=== PATIENT | male | born 1955 | race Caucasian/White ===

== ENCOUNTER → 2020-08-02 12:03 | Outpatient (BNVA) | payer OTHER, SELFPAY | PROVIDERS: PCP Family Medicine; Visit Provider Urology ==

== ENCOUNTER → 2020-09-06 15:28 | Outpatient (BNVA) | payer OTHER, SELFPAY | PROVIDERS: PCP Family Medicine; Visit Provider Urology ==

== ENCOUNTER 2020-09-11 12:41 | Day surgery (SDC) | payer MEDICARE, SELFPAY ==
--- NOTE | 2020-09-08 11:36 | P.CONAN_ITS ---
Documented by User: Geneva Shawna 09/08/20 11:37 HPI - Anesthesia Eval Consult details Narrative: 64yo M for Right Cystoscopy, Ureteroroscopy, Retro, Laser FOR[facility] Active Problems Active Problems: All Active Problems (Updated 09/06/20 @ 15:41 by HERLINDA Guillermo) Ureteral stone with hydronephrosis (Acute) Nephrolithiasis (Acute) Past Medical History Medical History (Updated 09/06/20 @ 15:41 by HERLINDA Guillermo) Elevated PSA Surgical History Surgical History (Updated 09/06/20 @ 15:41 by HERLINDA Guillermo) History of appendectomy Social History Social History (Updated 09/06/20 @ 15:42 by HERLINDA Guillermo) Smoking Status: Never smoker Use of substances other than those prescribed or required for medical reasons: No Have you been hit, kicked, punched, or otherwise hurt by someone within the past year? If so, by whom?: No Advance Directives: No Advance Directives Information Provided: Yes Meds Allergies Allergy/AdvReac Type Severity Reaction Status Date / Time No Known Allergies Allergy Verified 09/06/20 15:41 Exam Exam Date and Time: September 08, 2020 1136 Assessment and Plan Assessment Anesthesia Assessment: Chart Reviewed Documented by User: Kristofer Kelly MD 09/11/20 13:56 PMF Past Medical History Medical History (Updated 09/06/20 @ 15:41 by HERLINDA Guillermo) Elevated PSA Surgical History Surgical History (Updated 09/06/20 @ 15:41 by HERLINDA Guillermo) History of appendectomy Social History Social History (Updated 09/06/20 @ 15:42 by HERLINDA Guillermo) Smoking Status: Never smoker Use of substances other than those prescribed or required for medical reasons: No Have you been hit, kicked, punched, or otherwise hurt by someone within the past year? If so, by whom?: No Advance Directives: No Advance Directives Information Provided: Yes Meds Allergies Allergy/AdvReac Type Severity Reaction Status Date / Time No Known Allergies Allergy Verified 09/06/20 15:41 Exam Airway Mallampati Class: II TM Dist: >3cm Neck ROM: Full Loose/Missing/Broken Teeth: No Heart: RRR Lungs: NL Assessment and Plan Assessment Anesthesia Assessment: Anesthesia Plan Discussed and Chart Reviewed Final Anesthetic Review NPO: Yes ASA Class: III Final Preanesthetic Review: No Changes in Pt Med Stat, Meds/Allgs Chart Reviewed, Consent Obtained/Reviewed and Anes Risks/Benef Reviewed Patient Risk: Intermediate Procedure Risk: Low Anesthetic Plan Anesthetic Plan: GA Disposition: Standard PACU
--- NOTE | ~2020-09-11 | FL_ITS ---
EXAMINATION: XR FLUOROSCOPY WITH IMAGES CLINICAL INFORMATION: Stone urinary tract COMPARISON: None. TECHNIQUE: Fluoroscopy performed by Dr. Ariel Smith. Fluoroscopy time: 1.1 minutes Cumulative dose: 27.89 mGy Images: 2 FINDINGS: The fluoroscopic spot views demonstrate a right ureteral stent in position. FL/FL guidance in OR IMPRESSION: Fluoroscopy for urologic procedure.
[2020-09-11 13:38] VITALS: BP 176/86; PULSE 64; RESP 18; TEMP 36.6; O2SAT 97; BMI 29.2
[2020-09-11] MEDS: Lactated Ringers 1,000 ML 100 ML IVCONT (14:05)
[2020-09-11] MEDS: levoFLOXacin 500 MG TABLET PO (14:12)
[2020-09-11] MEDS: Acetaminophen 325 MG TABLET 650 MG PO (14:12)
--- NOTE | 2020-09-11 15:07 | P.OP_ITS ---
Operative Note Operative Note Date of Service: 09/11/20 Narrative: PreOperative Diagnosis: Right ureteric stone Post Operative Diagnosis: Right ureteric stone Procedure: - right cystoscopy, retrograde - dilatation of ureteric orifice under fluoroscopy - right ureteroscopy, laser lithotripsy, - right stent placement Surgeon: Dr Ariel Smith Anesthesia: General Indications for procedure: This is a 64-year-old male. Had pain on the right side and presented to emergency room for 4 weeks ago. He thought that stone had settled down however he would notice pain starting to reoccur. Ultrasound could not see stone. Based on his findings of persistent pain going to the right groin suggestion for retrograde with ureteroscopy and laser lithotripsy. He is aware of the risks and benefits. Procedure: After informed consent was verified patient was brought to the operating placed in supine position. Anesthesia was administered per protocol. Patient was placed in modified dorsal lithotomy position and prepped and draped in a sterile fashion. Safety pause time-out and side of surgery confirmed. Antibiotics con firmed. A 22 Albanian cystoscope was placed per urethra. No abnormality noted in the anterior posterior urethra. Both ureteric orifices normal position. The right ureteric orifice was seen cannulated retrograde examination performed. There was a filling defect just below the pelvic brim. A Sensor guidewire was placed in navigated around the filling defect. A [place] dilator was used to dilate the ureteric orifice under fluoroscopic guidance. A rigid ureteral scope was placed and stone was encountered at the area of narrowing of from the retrograde. Using a 360 mm fiber the holmium laser was used to break the stone into small pieces. There were too small to basket decision was made to place stent. At 6 Albanian by 26 cm stent was placed without difficulty and good coil seen within renal pelvis in the bladder. His bladder was emptied. He tolerated procedure well and was transferred in a stable condition to recovery area. Pathology: None Drains: 6 Albanian by 24 cm stent
--- NOTE | 2020-09-11 15:08 | MHC.SHP ---
Pre-Procedural Eval Section A The patient is an INPATIENT: No Changes since office visit: No Cold of Flu in the past 2 weeks, No New Medical Problems, No Changes in Medication and No Patient answered all questions The History & Physical has been completed within 30 days and I have reviewed it.: Yes Section B Chief Complaint: Calculus of kidney Allergies: Allergies Allergy/AdvReac Type Severity Reaction Status Date / Time No Known Allergies Allergy Verified 09/06/20 15:41 Plan Diagnosis/Plan: Unchanged (Right retrograde, ureteroscopy, laser lithotripsy, stent placement) I have reviewed the history and physical and performed a pertinent physical examination on my patient. No changes have occurred unless specified.
[2020-09-11 16:00] VITALS: BP 129/77; PULSE 72; RESP 14; TEMP 37; O2SAT 95
[2020-09-11 16:05] VITALS: BP 140/76; PULSE 70; RESP 16; O2SAT 94
[2020-09-11 16:10] VITALS: BP 126/79; PULSE 64; RESP 18; O2SAT 95
[2020-09-11 16:15] VITALS: BP 140/82; PULSE 70; RESP 16; O2SAT 96
[2020-09-11] MEDS: Phenazopyridine HCL 100 MG TABLET PO (16:21)
[2020-09-11 16:30] VITALS: BP 132/86; PULSE 66; RESP 18; TEMP 37; O2SAT 96
== END 2020-09-11 16:50 | disposition home or self-care (01) ==
PROVIDERS: PCP Family Medicine; Visit Provider Urology
PROC: (CPT 52356; principal; 2020-09-11 14:40)
DX: N13.2 Hydronephrosis with renal and ureteral calculous obstruction (principal); R97.20 Elevated prostate specific antigen [PSA]
CPT/HCPCS: 52356; C1769; C2617; J1100; J1885; J2250; J3010; Q9967

== ENCOUNTER → 2020-09-20 08:54 | Outpatient (BNVA) | payer MEDICARE, SELFPAY | PROVIDERS: Visit Provider Urology | DX: N13.2 Hydronephrosis with renal and ureteral calculous obstruction (principal) | CPT/HCPCS: 52310; 81002; 99212 ==

== ENCOUNTER → 2020-11-15 08:50 | Outpatient (BNVA) | payer MEDICARE, SELFPAY | PROVIDERS: PCP Family Medicine; Visit Provider Urology ==

== ENCOUNTER → 2020-11-21 11:09 | Outpatient (BNVA) | payer MEDICARE, SELFPAY | PROVIDERS: PCP Family Medicine; Visit Provider Urology | DX: Z13.89 Encounter for screening for other disorder (principal) | CPT/HCPCS: Q3014 ==

== ENCOUNTER 2021-05-28 12:59 | Outpatient (REF) | payer MEDICARE, SELFPAY ==
--- NOTE | ~2021-05-28 | US_ITS ---
EXAMINATION: US RETROPERITONEAL LIMITED (RENAL ONLY) CLINICAL INFORMATION: Calculus of kidney. COMPARISON: X-ray abdomen KUB same date. TECHNIQUE: Real-time imaging of the kidneys. FINDINGS: RIGHT KIDNEY: 12.9 x 7.2 x 6.3 cm (SAG x AP x TRV). The kidney is normal in size, contour, and echogenicity. Renal cortical thickness is normal. No focal parenchymal lesions or hydronephrosis. There is an echogenic stone measuring 0.53 x 0.6 cm. No caliectasis seen. LEFT KIDNEY: 14.6 x 7.3 x 5.5 cm (SAG x AP x TRV). The kidney is normal in size, contour, and echogenicity. Renal cortical thickness is normal. No calculi or focal parenchymal lesions. No hydronephrosis. US/US renal BI IMPRESSION: Small nonobstructive 6 mm calculus lower pole right kidney.
--- NOTE | ~2021-05-28 | XR_ITS ---
EXAMINATION: XR ABDOMEN KUB CLINICAL INDICATION: Calculus of ureter COMPARISON: Ultrasound from 05/28/2021 TECHNIQUE: AP view of the abdomen. FINDINGS: There right lower pole calculus seen on ultrasound is not clearly visualized. No suspicious calcifications overlie the expected position of either kidney or ureter. Normal bowel gas pattern. No dilated loops of bowel. Gas and stool throughout the colon. Mild colonic stool burden. The lung bases appear clear. Degenerative changes of the spine. XR/XR KUB IMPRESSION: No suspicious calcifications in the expected position of either kidney or ureter.
== END 2021-05-28 13:00 | disposition home or self-care (01) ==
LOC: HO.US 12:59
PROVIDERS: PCP Family Medicine; Visit Provider Urology
DX: N20.0 Calculus of kidney (principal); N20.1 Calculus of ureter
CPT/HCPCS: 74018; 76775

== ENCOUNTER → 2021-06-06 14:34 | Outpatient (BNVA) | payer MEDICARE, SELFPAY | PROVIDERS: PCP Family Medicine; Visit Provider Urology | DX: N40.1 Benign prostatic hyperplasia with lower urinary tract symptoms (principal); N13.8 Other obstructive and reflux uropathy; N13.2 Hydronephrosis with renal and ureteral calculous obstruction | CPT/HCPCS: Q3014 ==

== ENCOUNTER 2021-10-24 09:48 | Outpatient (REF) | payer MEDICARE, SELFPAY ==
--- NOTE | ~2021-10-24 | US_ITS ---
EXAMINATION: US RETROPERITONEAL LIMITED (RENAL ONLY) CLINICAL INFORMATION: Calculus of kidney. COMPARISON: X-ray KUB 05/28/2021, renal ultrasound 05/28/2021 TECHNIQUE: Real-time imaging of the kidneys. FINDINGS: RIGHT KIDNEY: 13.0 x 6.5 x 6.4 cm (SAG x AP x TRV). The kidney is normal in size, contour, and echogenicity. Renal cortical thickness is normal. There is an echogenic density questionable for a stone or cluster of stones in the midpole measuring 5 x 11 mm. No focal parenchymal lesions or hydronephrosis. LEFT KIDNEY: 13.8 x 6.3 x 6.3 cm (SAG x AP x TRV). The kidney is normal in size, contour, and echogenicity. Renal cortical thickness is normal. No calculi or focal parenchymal lesions. No hydronephrosis. US/US renal BI IMPRESSION: Question right renal stone(s).
== END 2021-10-24 09:49 | disposition home or self-care (01) ==
LOC: HO.US 09:48
PROVIDERS: Visit Provider Urology
DX: N20.0 Calculus of kidney (principal)
CPT/HCPCS: 76775

== ENCOUNTER → 2021-12-04 14:52 | Outpatient (BNVA) | payer MEDICARE, SELFPAY | PROVIDERS: PCP Family Medicine; Visit Provider Urology | DX: N20.0 Calculus of kidney (principal); N40.1 Benign prostatic hyperplasia with lower urinary tract symptoms; N13.8 Other obstructive and reflux uropathy | CPT/HCPCS: 99212 ==

== ENCOUNTER 2022-05-31 08:41 | Outpatient (REF) | payer MEDICARE, SELFPAY ==
--- NOTE | ~2022-05-31 | US_ITS ---
EXAMINATION: US RETROPERITONEAL LIMITED (RENAL ONLY) CLINICAL INFORMATION: Calculus of kidney. COMPARISON: Bilateral renal ultrasound dated 10/24/2021 TECHNIQUE: Real-time imaging of the kidneys. FINDINGS: RIGHT KIDNEY: 13.0 x 6.2 x 6.4 cm (SAG x AP x TRV). The kidney is normal in size, contour, and echogenicity. Renal cortical thickness is normal. No renal calculi or hydronephrosis. Tiny 6 mm anechoic cyst of the cortex of the right mid kidney. LEFT KIDNEY: 12.6 x 6.5 x 6.1 cm (SAG x AP x TRV). The kidney is normal in size, contour, and echogenicity. Renal cortical thickness is normal. No calculi or focal parenchymal lesions. No hydronephrosis. US/US renal BI IMPRESSION: No renal calculi or hydronephrosis by ultrasound..
== END 2022-05-31 08:42 | disposition home or self-care (01) ==
LOC: HO.US 08:41
PROVIDERS: Visit Provider Urology
DX: N20.0 Calculus of kidney (principal)
CPT/HCPCS: 76775

== ENCOUNTER → 2022-06-11 09:40 | Outpatient (BNVA) | payer MEDICARE, SELFPAY | PROVIDERS: PCP Family Medicine; Visit Provider Urology | DX: N40.1 Benign prostatic hyperplasia with lower urinary tract symptoms (principal); N13.8 Other obstructive and reflux uropathy; N20.0 Calculus of kidney | CPT/HCPCS: Q3014 ==

== ENCOUNTER 2023-05-23 08:12 | Outpatient (REF) | payer MEDICARE, SELFPAY ==
--- NOTE | ~2023-05-23 | US_ITS ---
EXAMINATION: US RETROPERITONEAL LIMITED (RENAL ONLY) CLINICAL INFORMATION: Calculus of kidney. COMPARISON: Renal ultrasound 05/31/2022 TECHNIQUE: Real-time imaging of the kidneys. FINDINGS: RIGHT KIDNEY: 13.8 x 7.3 x 6.3 cm (SAG x AP x TRV). The kidney is normal in size, contour, and echogenicity. Renal cortical thickness is normal. No renal calculi or hydronephrosis. Subcentimeter benign-appearing renal cyst, no follow-up imaging recommended. Linear echogenic focus without shadowing which may reflect a vascular reflector. No definite stone. LEFT KIDNEY: 13.7 x 6.0 x 5.4 cm (SAG x AP x TRV). The kidney is normal in size, contour, and echogenicity. Renal cortical thickness is normal. No focal parenchymal lesions or hydronephrosis. 3 mm nonobstructing lower pole renal stone new from prior. US/US renal BI IMPRESSION: 1. A 3 mm nonobstructing left lower pole renal stone new from prior. 2. Linear echogenic focus without shadowing in the right kidney which may reflect a vascular reflector. No definite right renal stone.
== END 2023-05-23 08:13 | disposition home or self-care (01) ==
LOC: HO.US 08:12
PROVIDERS: Visit Provider Urology
DX: N20.0 Calculus of kidney (principal)
CPT/HCPCS: 76775

== ENCOUNTER 2023-06-10 08:09 | Outpatient (REF) | payer MEDICARE, SELFPAY ==
[2023-06-10 12:01] LABS: Prostate Specific Antigen 1.44 ng/mL (<0.05-4.0)
== END 2023-06-10 08:10 | disposition home or self-care (01) ==
LOC: HO.WFDLDS 08:09
PROVIDERS: Visit Provider Urology
DX: N40.1 Benign prostatic hyperplasia with lower urinary tract symptoms (principal); N13.8 Other obstructive and reflux uropathy; N20.0 Calculus of kidney; Z12.5 Encounter for screening for malignant neoplasm of prostate
CPT/HCPCS: 36415; 84153

== ENCOUNTER 2023-06-12 11:28 | Outpatient (AMB) | payer MEDICARE, SELFPAY ==
--- NOTE | 2023-06-12 11:31 | A.OFFVIS_ITS ---
Intake Intake Visit Reasons: 1Y US/PSA(psa?) Intake Note: Patient is present for a 1 year follow-up PSA Results: Urology Medication: Vitamin B6. Blood Thinner: Aspirin PSA Results: 1.44 ng/mL, 06/10/2023 [employer] Machine Feeder Required: No Accompanied by: Self / Same As Patient Allergies No Known Allergies Allergy (Verified 06/12/23 11:32) Medication List - Last Reconciled 06/12/23 by Ariel Smith MD aspirin 1 tab PO DAILY atorvastatin 80 mg PO DAILY clopidogrel 75 mg PO DAILY metoprolol succinate ER 150 mg PO DAILY naproxen (Naprosyn) 500 mg PO Q12H PRN pyridoxine (vitamin B6) 100 mg PO DAILY 90 days tramadol 50 mg PO Q8H PRN HPI HPI Comments History of Present Illness Details Brent is very pleasant male. He is a patient of Dr. Corrales. He is seen for the following urologic condition - nephrolithiasis Discussed current imaging results Small stone left side Encouraged continued vitamin B6 fluid intake Did have question regarding right inguinal pain On examination has tear of medial aspect of inguinal canal. Recommend 3 months stress 12 month follow-up imaging PSA 06/14 1.4 Nephrolithiasis Follow-up They are here for further evaluation of nephrolithiasis Urolithiasis was diagnosed - prior stone around 2009 The patient previously had kidney stones whose composition w - unknown Laboratory investigations include - no recent labs 24 Hour urine evaluation - none on file Prior treatment(s) include - August 2020 right ureteroscopy stent Prior imaging includes - 08/01/[address] - stone protocol- 4 mm rig ht proximal stone with mild hydronephrosis - 11/10 renal ultrasound 4 mm lower pole left kidney. Hydronephrosis resolved - 06/12 renal ultrasound 4 mm right ston e, KUB no evidence stone - 06/13 renal ultrasound, no stones seen - 06/14 renal ultrasound question small left 3 mm stone Current therapeutic plan will be - plan for imaging - vitamin B6 [facility] Medical History Elevated PSA Surgical History History of appendectomy Social History Patient Tobacco Use Status: Never used Tobacco Review of Systems Const Denies chills and Denies fever(s) Card Reports no additional complaints and Denies syncope Resp Denies cough GI Denies abdominal pain and Denies heartburn Reports as per HPI and Denies change in libido Neuro Denies syncope Psych Denies change in libido Endo Denies change in libido Physical Exam Const General: cooperative, healthy appearing, comfortable and no acute distress Orientation/consciousness: patient oriented x3 HEENT Face and sinus: Yes normal facial exam Mouth: moist mucous membranes Neck Neck: Yes normal visual inspection, Yes full ROM and Yes trachea midline Chest Chest palpation & inspection: normal inspection of the chest Resp Effort & Inspection: normal respiratory effort, able to speak in complete sentences and no respiratory distress GI Inspection: Yes normal to inspection Back/Spine/Pelvis Cervical Spine: normal cervical lordosis Thoracic/Lumbar Spine: thoracic and lumbar spine normal to inspection Skin General skin exam: no rashes or lesions noted Neuro General: patient oriented x3, gait normal, tone normal and moves all extremities Extrem General: Yes normal to inspection and Yes capillary refill normal Results AMB Urinalysis, Automated UA Leukoctes 0 Enoch/uL Last Edit by HERLINDA Odonnell on 06/12/23 11:41 UA Nitrite Negative Last Edit by HERLINDA Odonnell on 06/12/23 11:41 UA Urobilinogen 0.2 mg/dL Last Edit by HERLINDA Odonnell on 06/12/23 11:4 1 UA Protein 0 mg/dL Last Edit by HERLINDA Odonnell on 06/12/23 11:41 UA pH 6.0 Last Edit by HERLINDA Odonnell on 06/12/23 11:41 UA Blood 80 Eduin/uL Last Edit by HERLINDA Odonnell on 06/12/23 11:41 2+ Rebecca Steinberg 06/12/23 11:41 UA Specific [place] 1.010 Last Edit by HERLINDA Odonnell on 06/12/23 11: 41 UA Ketone Negative Last Edit by HERLINDA Odonnell on 06/12/23 11:41 UA Bilirubin 0 mg/dL Last Edit by HERLINDA Odonnell on 06/12/23 11:41 UA Glucose 0 mg/dL Last Edit by HERLINDA Odonnell on 06/12/23 11:41 Results Reviewed Results Reviewed: Laboratory Last Values Urine pH (Auto) 6.0 06/12/23 11:34 Specific [place] (Auto) 1.010 06/12/23 11:34 Urine Protein (Auto) 0 mg/dL 06/12/23 11:34 Glucose (UA)(Auto) 0 mg/dL 06/12/23 11:34 Urine Ketones (Auto) Negative 06/12/23 11:34 Urine Blood (Auto) 80 Eduin/uL 06/12/23 11:34 Urine Nitrite (Auto) Negative 06/12/23 11:34 Urine Bilirubin (Auto) 0 mg/dL 06/12/23 11:34 Urine Urobilinogen (Auto) 0.2 mg/dL 06/12/23 11:34 Leukocyte Esterase (Auto) 0 Enoch/uL 06/12/23 11:34 Assessment & Plan Assessment & Plan (1) BPH w urinary obs/LUTS: Code(s): N40.1 - Benign prostatic hyperplasia with lower urinary tract symptoms; N13.8 - Other obstructive and reflux uropathy (2) Nephrolithiasis: Code(s): N20.0 - Calculus of kidney Plan Twelve month follow-up Orders: Orders AMB Urinalysis Automated Today Z13.9 - Encounter for screening, unspecified Prostate Specific Antigen 06/10/23 N13.8 - Other obstructive and reflux uropathy, N40.1 - Benign prostatic hyperplasia with lower urinary tract symptoms US renal BI 364 Days N20.0 - Calculus of kidney Medications: Changed From pyridoxine (vitamin B6) 100 mg PO DAILY 90 days 90 tabs 3RF N13.2 - Hydronephrosis with renal and ureteral calculous obstruction, N20.0 - Calculus of kidney To pyridoxine (vitamin B6) 50 mg PO DAILY 90 tabs 3RF 90 days N13.2 - Hydronephrosis with renal and ureteral calculous obstruction, N20.0 - Calculus of kidney Patient Instructions: Imaging studies, laboratory and physical exam results were discussed and reviewed in detail. No major barriers to patient understanding were identified. An opportunity to ask questions regarding the treatment plan was provided. All questions were answered. The patient expressed understanding and agreement with the above treatment plan. The patient is aware they should contact our office by phone for worsening of their current condition or the appearance of new urologic symptoms. Compliance is encouraged with any medications and followup testing that is ordered. It is a privilege to participate in the urologic care of your patient. If you have any questions or concerns regarding treatment for the above conditions, or other urologic issues, please do not hesitate to contact me. The office telephone contact is [phone]. This note is constructed using voice recognition software. While every effort has been made to ensure accuracy pump press operator errors may have been included. Yours sincerely, Dr Ariel Smith MD, [facility] - Urology Providers of Expert, Compassionate Care for the Genitourinary System Coding Level of Care Code Est Pt Level 4 (40183) Diagnoses BPH w urinary obs/LUTS N40.1; N13.8 Nephrolithiasis N20.0
== END 2023-06-12 11:54 | disposition home or self-care (01) ==
PROVIDERS: Visit Provider Urology
DX: N40.1 Benign prostatic hyperplasia with lower urinary tract symptoms (principal); N13.8 Other obstructive and reflux uropathy; N20.0 Calculus of kidney; Z13.9 Encounter for screening, unspecified
CPT/HCPCS: 99214

== ENCOUNTER → 2023-06-12 11:28 | Outpatient (BNVA) | payer MEDICARE, SELFPAY | PROVIDERS: Visit Provider Urology | DX: N40.1 Benign prostatic hyperplasia with lower urinary tract symptoms (principal); N13.8 Other obstructive and reflux uropathy; N20.0 Calculus of kidney | CPT/HCPCS: 81003; 99212 ==

== ENCOUNTER 2024-06-01 12:56 | Outpatient (REF) | payer MEDICARE, SELFPAY | END 2024-06-01 12:57 | disposition home or self-care (01) | LOC: HO.US 12:56 | PROVIDERS: PCP Internal Medicine; Visit Provider Urology | DX: N20.0 Calculus of kidney (principal) | CPT/HCPCS: 76775 ==

== ENCOUNTER 2024-06-11 10:18 | Outpatient (AMB) | payer MEDICARE, SELFPAY ==
--- NOTE | 2024-06-11 10:19 | A.OFFVIS_ITS ---
Intake Visit Reasons: 1y/US Intake Note: Patient is present for a 1 year follow-UP/US Urology Medication: Vitamin B6. Blood Thinner: Aspirin ALLERGIES: NONE Qa Intern Required: No Accompanied by: Self / Same As Patient Allergies No Known Allergies Allergy (Verified 06/11/24 10:22) HPI Comments Details: Brent is very pleasant male. He is a patient of Dr. Corrales. He is seen for the following urologic condition - nephrolithiasis Yearly follow-up Telemedicine Evaluation 15 min Consultation [employer] Video Discussed current imaging results Small stone left side Encouraged continued vitamin B6 fluid intake Has been having some pain on the left side Discussed possible ESWL At this point he will continue with fluid management and follow-up in 6 months 6 month follow-up imaging PSA 06/14 1.4 Nephrolithiasis Follow-up They are here for further evaluation of nephrolithiasis Urolithiasis was diagnosed - prior stone around 2009 The patient previously had kidney stones whose composition w - unknown Laboratory investigations include - no recent labs 24 Hour urine evaluation - none on file Prior treatment(s) include - August 2020 right ureteroscopy stent Prior imaging includes - 08/01/[address] - stone protocol- 4 mm right proximal stone with mild hydronephrosis - 11/10 renal ultrasound 4 mm lower pole left kidney. Hydronephrosis resolved - 06/12 renal ultrasound 4 mm right stone, KUB no evidence stone - 06/13 renal ultrasound, no stones seen - 06/14 renal ultrasound question small left 3 mm stone - 06/15 renal ultrasound left stone 8 mm Current therapeutic plan will be - plan for imaging - vitamin B6 [facility] Medical History Elevated PSA Surgical History History of appendectomy Social History Patient Tobacco Use Status: Never used Tobacco Review of Systems Const All systems reviewed & are unremarkable except as noted in HPI and below Reports no additional complaints Resp Reports no additional complaints GI Reports no additional complaints Reports as per HPI Musc Reports no additional complaints Physical Exam Telemedicine evaluation Appropriate responses Regular breathing rate and rhythm HEENT Head: Yes normal to inspection Ears: hearing grossly normal bilaterally Eyes General: appearance normal, both eyes and all related structures Neck Neck: Yes normal visual inspection Chest Chest palpation & inspection: normal inspection of the chest Resp Effort & Inspection: normal respiratory effort and able to speak in complete sentences Telehealth Telehealth Location of provider rendering services: practice address Location of patient: address on file Patient Identification confirmed using: Name, : Yes Telehealth method: voice only Patient verbally consented to treatment: Yes Patient verbally consented to billing insurance company: Yes Patient informed of any privacy concerns related to visit: Yes Assessment & Plan Assessment & Plan (1) Nephrolithiasis: Code(s): N20.0 - Calculus of kidney Category: Medical (2) BPH w urinary obs/LUTS: Code(s): N40.1 - Benign prostatic hyperplasia with lower urinary tract symptoms; N13.8 - Other obstructive and reflux uropathy Category: Medical Plan Six-month follow-up KUB Possible ESWL Orders: Orders XR KUB 6 Months N20.0 - Calculus of kidney Patient Instructions: Imaging studies, laboratory and physical exam results were discussed and reviewed in detail. No major barriers to patient understanding were identified. An opportunity to ask questions regarding the treatment plan was provided. All questions were answered. The patient expressed understanding and agreement with the above treatment plan. The patient is aware they should contact our office by phone for worsening of their current condition or the appearance of new urologic symptoms. Compliance is encouraged with any medications and followup testing that is ordered. It is a privilege to participate in the urologic care of your patient. If you have any questions or concerns regarding treatment for the above conditions, or other urologic issues, please do not hesitate to contact me. The office telephone contact is [phone]. This note is constructed using voice recognition software. While every effort has been made to ensure accuracy frame nailer errors may have been included. Yours sincerely, Dr Ariel mSith MD, [facility] - Urology Providers of Expert, Compassionate Care for the Genitourinary System Coding Level of Care Code Tele Est Pt Level 3 (71707) Diagnoses Nephrolithiasis N20.0 BPH w urinary obs/LUTS N40.1; N13.8
== END 2024-06-11 11:41 | disposition home or self-care (01) ==
LOC: HO.HUSH 10:18
PROVIDERS: PCP Internal Medicine; Visit Provider Urology
DX: N20.0 Calculus of kidney (principal); N40.1 Benign prostatic hyperplasia with lower urinary tract symptoms; N13.8 Other obstructive and reflux uropathy
CPT/HCPCS: 99442

== ENCOUNTER → 2024-06-11 10:18 | Outpatient (BNVA) | payer MEDICARE, SELFPAY | PROVIDERS: PCP Internal Medicine; Visit Provider Urology ==

== ENCOUNTER 2024-06-21 11:23 | Outpatient (REF) | payer MEDICARE, SELFPAY ==
--- NOTE | ~2024-06-21 | XR_ITS ---
EXAMINATION: XR ABDOMEN KUB CLINICAL INDICATION: N20.0 - Calculus of kidney COMPARISON: Ultrasound renal 12 TECHNIQUE: AP view of the abdomen. FINDINGS: 8 mm radiopaque calculi overlying the left kidney suggestive of small stone. No additional radiopaque calculi seen. No organomegaly. There is scattered stool and gas in colon suggesting mild constipation. No gross bony abnormality. XR/XR KUB IMPRESSION: Suspect small radiopaque calculi left kidney pelvis. It is new since 2020 ultrasound exam. Electronically signed by: Antonio Peña MD 06/21/2024 02:16 PM EST
== END 2024-06-21 11:24 | disposition home or self-care (01) ==
LOC: HO.XRAY 11:23
PROVIDERS: PCP Internal Medicine; Visit Provider Urology
DX: N20.0 Calculus of kidney (principal)
CPT/HCPCS: 74018

== ENCOUNTER → 2024-06-21 11:27 | Outpatient (BNV) | payer MEDICARE, SELFPAY | PROVIDERS: PCP Internal Medicine; Visit Provider Radiology Diagnostic Radiology | DX: N20.0 Calculus of kidney (principal) | CPT/HCPCS: 74018 ==

== ENCOUNTER 2024-07-01 09:38 | Outpatient (AMB) | payer MEDICARE, SELFPAY ==
--- NOTE | 2024-07-01 10:18 | MHC.OFFVIS ---
Intake Visit Reasons: KUB XRay follow up(set) Intake Note: Patient is present for KUB XRAY F/U Urology Medication:VITAMIN B6 Antibiotic Allergy:NONE Blood Thinner:ASPIRIN Training Personnel Supervisor Required: No Allergies No Known Allergies Allergy (Verified 07/01/24 10:19) HPI Comments Details: Brent is very pleasant male. He is a patient of Dr. Corrales. He is seen for the following urologic condition - nephrolithiasis Yearly follow-up Has been having discomfort on left side Move ahead with left-sided ESWL PSA 06/14 1.4 Nephrolithiasis Follow-up They are here for further evaluation of nephrolithiasis Urolithiasis was diagnosed - prior stone around 2009 The patient previously had kidney stones whose composition w - unknown Laboratory investigations include - no recent labs 24 Hour urine evaluation - none on file Prior treatment(s) include - August 2020 right ureteroscopy stent Prior imaging includes - 08/01/[address] - stone protocol- 4 mm right proximal stone with mild hydronephrosis - 11/10 renal ultrasound 4 mm lower pole left kidney. Hydronephrosis resolved - 06/12 renal ultrasound 4 mm right stone, KUB no evidence stone - 06/13 renal ultrasound, no stones seen - 06/14 renal ultrasound question small left 3 mm stone - 06/15 renal ultrasound left stone 8 mm Current therapeutic plan will be - plan for imaging - vitamin B6 [facility] Medical History Elevated PSA Surgical History History of appendectomy Social History Patient Tobacco Use Status: Never used Tobacco Review of Systems Const Denies chills and Denies fever(s) Card Reports no additional complaints and Denies syncope Resp Denies cough GI Denies abdominal pain and Denies heartburn Reports as per HPI and Denies change in libido Neuro Denies syncope Psych Denies change in libido Endo Denies change in libido Physical Exam Const General: cooperative, healthy appearing, comfortable and no acute distress Orientation/consciousness: patient oriented x3 HEENT Face and sinus: Yes normal facial exam Mouth: moist mucous membranes Neck Neck: Yes normal visual inspection, Yes full ROM and Yes trachea midline Chest Chest palpation & inspection: normal inspection of the chest Resp Effort & Inspection: normal respiratory effort, able to speak in complete sentences and no respiratory distress GI Inspection: Yes normal to inspection Back/Spine/Pelvis Cervical Spine: normal cervical lordosis Thoracic/Lumbar Spine: thoracic and lumbar spine normal to inspection Skin General skin exam: no rashes or lesions noted Neuro General: patient oriented x3, gait normal, tone normal and moves all extremities Extrem General: Yes normal to inspection and Yes capillary refill normal Assessment & Plan Assessment & Plan (1) Groin pain: Code(s): R10.30 - Lower abdominal pain, unspecified Category: Medical (2) Nephrolithiasis: Code(s): N20.0 - Calculus of kidney Category: Medical (3) BPH w urinary obs/LUTS: Code(s): N40.1 - Benign prostatic hyperplasia with lower urinary tract symptoms; N13.8 - Other obstructive and reflux uropathy Category: Medical (4) Ureteral stone with hydronephrosis: Code(s): N13.2 - Hydronephrosis with renal and ureteral calculous obstruction Category: Medical Plan Extracorporeal Shock Wave Lithotripsy We discussed the nature of the decision and reasonable alternatives for performing the above surgery. Interventions include chemical dissolution, ESWL, ureteroscopy with laser lithotripsy and stent placement, PCNL. Options such as medical therapy were discussed. The relative uncertainties and benefits related to each alternate procedure were adequately discussed. General surgical risks including, but not limited to, pain, bleeding, infection, myocardial infarction, pulmonary embolus, deep vein thrombosis and cerebrovascular accident which may result in further hospitalization were discussed. Full disclosure of the procedure as well as all major risks, benefits and complications were discussed including but not limited to risks of bleeding, injury to the kidney with hematoma or alfredo-hematoma, failure to fragments stone, potential for ureteric obstruction from stone passage and need for secondary procedures. There is a small long-term risk of hypertension and a question nallely of diabetes. Success rate of fragmentation and passage is approximately 70- 75%. This is compared to the risks and benefits for ureteroscopy which has a higher success rate but is a more invasive procedure. The success rate of the procedure was discussed. Success of the procedure in the short-term does not necessarily guarantee that long-term success will be maintained. Suitable follow up will need to be maintained. The patient showed understanding of the discussion as well as the typical recovery time, and the outpatient nature of this procedure. Opportunity was given for questions. Repeat-back protocol used to confirm understanding. They wish to proceed with left ESWL Medications: New meloxicam 15 mg PO DAILY 30 tabs 0RF 30 days R10.30 - Lower abdominal pain, unspecified Patient Instructions: Imaging studies, laboratory and physical exam results were discussed and reviewed in detail. No major barriers to patient understanding were identified. An opportunity to ask questions regarding the treatment plan was provided. All questions were answered. The patient expressed understanding and agreement with the above treatment plan. The patient is aware they should contact our office by phone for worsening of their current condition or the appearance of new urologic symptoms. Compliance is encouraged with any medications and followup testing that is ordered. It is a privilege to participate in the urologic care of your patient. If you have any questions or concerns regarding treatment for the above conditions, or other urologic issues, please do not hesitate to contact me. The office telephone contact is [phone]. This note is constructed using voice recognition software. While every effort has been made to ensure accuracy maintenance instructor errors may have been included. Yours sincerely, Dr Ariel Smith MD, [facility] - Urology Providers of Expert, Compassionate Care for the Genitourinary System Coding Level of Care Code Est Pt Level 4 (25384) Diagnoses Groin pain R10.30 Nephrolithiasis N20.0 BPH w urinary obs/LUTS N40.1; N13.8 Ureteral stone with hydronephrosis N13.2
== END 2024-07-01 10:56 | disposition home or self-care (01) ==
PROVIDERS: PCP Internal Medicine; Visit Provider Urology
DX: R10.30 Lower abdominal pain, unspecified (principal); N20.0 Calculus of kidney; N40.1 Benign prostatic hyperplasia with lower urinary tract symptoms; N13.8 Other obstructive and reflux uropathy; N13.2 Hydronephrosis with renal and ureteral calculous obstruction
CPT/HCPCS: 99214

== ENCOUNTER → 2024-07-01 09:38 | Outpatient (BNVA) | payer MEDICARE, SELFPAY | PROVIDERS: PCP Internal Medicine; Visit Provider Urology | DX: N40.1 Benign prostatic hyperplasia with lower urinary tract symptoms (principal); N13.8 Other obstructive and reflux uropathy; N13.2 Hydronephrosis with renal and ureteral calculous obstruction; R10.30 Lower abdominal pain, unspecified | CPT/HCPCS: 99212 ==

== ENCOUNTER → 2024-07-28 09:08 | Outpatient (BNVA) | payer MEDICARE, SELFPAY | PROVIDERS: PCP Internal Medicine; Visit Provider Urology | DX: N13.2 Hydronephrosis with renal and ureteral calculous obstruction (principal) | CPT/HCPCS: 99212 ==

== ENCOUNTER 2024-09-08 08:52 | Day surgery (SDC) | payer MEDICARE, SELFPAY ==
[2024-09-06 10:44] VITALS: BMI 31.0
--- NOTE | ~2024-09-08 | XR_ITS ---
EXAMINATION: XR ABDOMEN 1 VIEW (KUB) HISTORY: stones COMPARISON: Comparison is made with the prior examination dated 06/21/2024. FINDINGS: Two supine views of the abdomen are submitted. The bowel gas pattern is unremarkable, without evidence of mechanical obstruction. Again seen is a 10 mm calcification in the left upper quadrant, likely related to the left kidney. There are no abnormal soft tissue masses. The bones are intact. XR/XR KUB IMPRESSION: 10 mm left upper quadrant calcification, likely related to the left kidney. Electronically signed by: Yonny Torres MD 09/08/2024 01:33 PM EDT
[2024-09-08 10:17] VITALS: BP 160/93; PULSE 54; RESP 14; TEMP 36.6; O2SAT 99; BMI 29.9
[2024-09-08] MEDS: Lactated Ringers 1,000 ML 100 ML IVCONT (10:29)
--- NOTE | 2024-09-08 10:45 | P.CONAN_ITS ---
Documented by User: Geneva Matos NP 09/07/24 12:13 HPI - Anesthesia Eval Consult details Narrative: Follows [facility] cardiology for CAD s/p stent 2020. Stable at 01/2024 office visit with routine yearly f/u, good exercise capacity with cardiac rehab and negative stress echo FOR[facility], [facility] Active Problems Active Problems: All Active Problems Groin pain (Acute) BPH w urinary obs/LUTS (Acute) Ureteral stone with hydronephrosis (Acute) Nephrolithiasis (Acute) Past Medical History Medical History (Updated 09/06/24 @ 10:41 by Sonia Miller RN) Hyperlipidemia HTN (hypertension) CAD (coronary artery disease) Elevated PSA Surgical History Surgical History (Updated 09/06/24 @ 10:41 by Sonia Miller RN) H/O colonoscopy Hx of cystoscopy History of appendectomy Social History Social History Are you a primary home care scheduler to a significant other at home: No Do you presently have visiting nurse or other home services: No Patient Tobacco Use Status: Former Tobacco user Use of substances other than those prescribed or required for medical reasons: No Have you been hit, kicked, punched, or otherwise hurt by someone within the past year? If so, by whom?: No Advance Directives: No Advance Directives Information Provided: Yes Recently lost weight without trying: No Nutrition Risks: No Nutritional Risk Poor oral hygiene: No Meds Allergies Allergy/AdvReac Type Severity Reaction Status Date / Time No Known Allergies Allergy Verified 07/28/24 09:12 Home Medications ?Medication ?Instructions ?Recorded ?Confirmed ?Last Taken ?Type atorvastatin 80 mg tablet 80 mg PO DAILY 06/06/21 09/06/24 Unknown History aspirin 81 mg chewable tablet 1 tab PO DAILY 12/04/21 09/06/24 Unknown History metoprolol succinate 50 mg 150 mg PO DAILY 12/04/21 09/06/24 Unknown History tablet,extended release 24 hr cholecalciferol (vitamin D3) 25 25 mcg PO DAILY 09/06/24 09/06/24 Unknown History mcg (1,000 unit) capsule (Vitamin D3) lisinopril 5 mg tablet 5 mg PO DAILY 09/06/24 09/06/24 Unknown History nitroglycerin 0.4 mg sublingual 0.4 mg sublingual Q5M PRN Chest 09/06/24 09/06/24 Unknown History tablet (Nitrostat) Pain omega 8-ine-tsc-fish oil 300 1 cap PO DAILY 09/06/24 09/06/24 Unknown History mg-1,000 mg capsule (Fish Oil) sildenafil 100 mg tablet 100 mg PO DIRECTED 09/06/24 09/06/24 Unknown History Exam Height,Weight and Vital Signs: Height 6 ft 0.05 in Weight 103.9 kg Narrative Narrative: Stress ECHO 2022 Summary Normal Left Ventricular size with preserved systolic function at rest and appropriate augmentation at peak stress. There is no regional wall motion abnormalities at rest or following stress. Impressions Normal exercise stress echo study with good (above average) functional capacity at 10.1 METS. Assessment and Plan Assessment Anesthesia Assessment: Chart Reviewed Documented by User: Yenni Mae DO 09/08/24 11:08 HPI - Anesthesia Eval Consult details Narrative: 68 yo M presenting for left lithotripsy ESWL Follows [facility] cardiology for CAD s/p stent 2020. Stable at 01/2024 office visit with routine yearly f/u, good exercise capacity with cardiac rehab and negative stress echo PMFSH Past Medical History Medical History (Updated 09/06/24 @ 10:41 by Sonia Miller RN) Hyperlipidemia HTN (hypertension) CAD (coronary artery disease) Elevated PSA Family History Family history of problems with anesthesia: No Surgical History Surgical History (Updated 09/06/24 @ 10:41 by Sonia Miller RN) H/O colonoscopy Hx of cystoscopy History of appendectomy History of Problems with Anesthesia: No Social History Social History Are you a primary home care scheduler to a significant other at home: No Do you presently have visiting nurse or other home services: No Patient Tobacco Use Status: Former Tobacco user Use of substances other than those prescribed or required for medical reasons: No Have you been hit, kicked, punched, or otherwise hurt by someone within the past year? If so, by whom?: No Advance Directives: No Advance Directives Information Provided: Yes Recently lost weight without trying: No Nutrition Risks: No Nutritional Risk Poor oral hygiene: No Meds Allergies Allergy/AdvReac Type Severity Reaction Status Date / Time No Known Allergies Allergy Verified 07/28/24 09:12 Home Medications ?Medication ?Instructions ?Recorded ?Confirmed ?Last Taken ?Type atorvastatin 80 mg tablet 80 mg PO DAILY 06/06/21 09/06/24 Unknown History aspirin 81 mg chewable tablet 1 tab PO DAILY 12/04/21 09/06/24 Unknown History metoprolol succinate 50 mg 150 mg PO DAILY 12/04/21 09/06/24 Unknown History tablet,extended release 24 hr cholecalciferol (vitamin D3) 25 25 mcg PO DAILY 09/06/24 09/06/24 Unknown History mcg (1,000 unit) capsule (Vitamin D3) lisinopril 5 mg tablet 5 mg PO DAILY 09/06/24 09/06/24 Unknown History nitroglycerin 0.4 mg sublingual 0.4 mg sublingual Q5M PRN Chest 09/06/24 09/06/24 Unknown History tablet (Nitrostat) Pain omega 5-ggq-mmw-fish oil 300 1 cap PO DAILY 09/06/24 09/06/24 Unknown History mg-1,000 mg capsule (Fish Oil) sildenafil 100 mg tablet 100 mg PO DIRECTED 09/06/24 09/06/24 Unknown History Exam Exam Date and Time: 09/08/24 1045 Height,Weight and Vital Signs: Height 6 ft 0.05 in Weight 103.9 kg Vital Signs Temperature 97.9 F 09/08/24 10:17 Pulse Rate 54 09/08/24 10:17 Respiratory Rate 14 09/08/24 10:17 Blood Pressure 160/93 H 09/08/24 10:17 Pulse Oximetry 99 09/08/24 10:17 Oxygen Delivery Method Room Air 09/08/24 10:17 Temperature 97.9 F 09/08/24 10:17 Pulse Rate 54 09/08/24 10:17 Respiratory Rate 14 09/08/24 10:17 Blood Pressure 160/93 H 09/08/24 10:17 Pulse Oximetry 99 09/08/24 10:17 Oxygen Delivery Method Room Air 09/08/24 10:17 Airway Mallampati Class: II TM Dist: >3cm Neck ROM: Full Loose/Missing/Broken Teeth: No (patient denies any loose or broken teeth) Heart: S1S2 Lungs: CTAB Assessment and Plan Assessment Anesthesia Assessment: Anesthesia Plan Discussed and Chart Reviewed Final Anesthetic Review Family History of Problems with Anesthesia: No History of Problems with Anesthesia: No NPO: Yes ASA Class: II Final Preanesthetic Review: No Changes in Pt Med Stat, Meds/Allgs Chart Reviewed, Consent Obtained/Reviewed and Anes Risks/Benef Reviewed Patient Risk: Low Procedure Risk: Low Anesthetic Plan Anesthetic Plan: MAC: and Agree w/ Assess. and Plan Disposition: Standard PACU
--- NOTE | 2024-09-08 11:09 | P.HPSUR_ITS ---
Pre-Procedural Eval Section A - 24 Hr Update-Section A only Date of Service: 09/08/24 The patient is an INPATIENT: No Changes since office visit: No Cold of Flu in the past 2 weeks, No New Medical Problems, No Changes in Medication and No Patient answered all questions The patient has been examined within 24 hours of the surgical procedure. The History & Physical has been completed within 30 days and I have reviewed it.: No Section B - Complete if H&P > 30 days Chief Complaint: Calculus of kidney Details of Present Illness: left ESWL 9mm Relevant Family History (Specify if Yes): No Relevant Social History: None Present Medications: see Short Stay Collaborative assessment Medical History: No relevant PMH History of Previous Operations: Relevant previous surgery/procedure and date(s) Allergies: Allergies Allergy/AdvReac Type Severity Reaction Status Date / Time No Known Allergies Allergy Verified 07/28/24 09:12 Review of Systems Sugical H&P ROS: Negative: Constitution, Cardiovascular, Respiratory, Neurological, Psychiatric, Hem-Onc, Allergic/Immunologic, Gastrointestinal, Genitourinary, Musculoskeletal, Integumentary, Endocrine and Eyes/Ears/Nose/ Throat Exam Surgical H&P Exam: Normal: HEENT, Normal: Heart, Normal: Lungs, Normal: Extremities, Normal: Abdomen, Normal: Skin and Normal: Neurological Plan Diagnosis/Plan: Unchanged I have reviewed the history and physical and performed a pertinent physical examination on my patient. No changes have occurred unless specified. Time Spent With Patient Time: Total time managing care of this patient today ____ minutes.
[2024-09-08] MEDS: Acetaminophen 1,000 MG/100 ML PIGGYBACK 400 MG IV (11:15)
--- NOTE | 2024-09-08 11:39 | W.PM.OPN ---
Operative Note Operative Note Date of Service: 09/08/24 Narrative: PreOperative Diagnosis: Left Renal stones Post Operative Diagnosis: Left Renal stones Procedure: Left ESWL Surgeon: Dr Ariel Smith Anesthesia: mac/sedation Indications for procedure: The patient understands ESWL may be a staged procedure and subsequent intervention may be required based on imaging after ESWL. Quoted stone clearance rates for a solitary procedure are in the 70-80% range based primarily on stone location. They also understand there is a risk of bleeding to the kidney, infection, damage to adjacent organs, and stone migration following the procedure. - Imaging 9 mm left mid pole, 3 mm - Today measures 11x8 Procedure optimization has been performed with IV acetaminophen given in the holding area and 1 L of lactated Ringer's to be given in order to optimize the fluid-stone interface. 20 mg of IV Lasix will be given in the last 5 minutes of the procedure to optimize stone clearance. Procedure: After informed consent was verified the patient was brought to the operating room and placed in a supine position. Anesthesia was performed per protocol. Safety pause time-out was performed. Imaging was displayed in the room and laterality confirmed. ESWL was performed. The 1st 500 shocks were performed at 60 hertz. These were performed with increasing power. Once maximum power was reached the rate was increased to 180 hertz. A total of 2500 shocks were given. Targeted imaging with ultrasound/fluoroscopy showed stone smudging and bouncing suggestive of disintegration. The patient tolerated the procedure well and was transferred to the recovery area upon completion. Post procedure imaging will be organized. There was no evidence for flank discoloration.
[2024-09-08 12:15] VITALS: BP 119/73; PULSE 57; RESP 18; TEMP 36.9; O2SAT 94
[2024-09-08 12:30] VITALS: BP 127/73; PULSE 50; RESP 16; O2SAT 96
[2024-09-08 12:45] VITALS: BP 129/80; PULSE 51; RESP 16; TEMP 36.8; O2SAT 96
== END 2024-09-08 13:38 | disposition home or self-care (01) ==
PROVIDERS: PCP Internal Medicine; Visit Provider Urology
PROC: (CPT 50590; principal; 2024-09-08 11:30)
DX: N13.2 Hydronephrosis with renal and ureteral calculous obstruction (principal); R97.20 Elevated prostate specific antigen [PSA]; I25.10 Atherosclerotic heart disease of native coronary artery without angina pectoris; Z95.5 Presence of coronary angioplasty implant and graft; I10 Essential (primary) hypertension; E78.5 Hyperlipidemia, unspecified; Z87.19 Personal history of other diseases of the digestive system; Z79.82 Long term (current) use of aspirin; Z79.899 Other long term (current) drug therapy; Z87.891 Personal history of nicotine dependence
CPT/HCPCS: 50590; 74018; J0131; J1100; J1940; J2003; J2704

== ENCOUNTER → 2024-09-08 08:52 | Outpatient (BNV) | payer MEDICARE, SELFPAY | PROVIDERS: PCP Internal Medicine; Visit Provider Urology | DX: N20.0 Calculus of kidney (principal) | CPT/HCPCS: 50590 ==

== ENCOUNTER → 2024-09-08 09:09 | Outpatient (BNV) | payer MEDICARE, SELFPAY | PROVIDERS: PCP Internal Medicine; Visit Provider Radiology Diagnostic Radiology | DX: R19.32 Left upper quadrant abdominal rigidity (principal); N20.0 Calculus of kidney | CPT/HCPCS: 74018 ==

== ENCOUNTER 2024-10-05 15:56 | Outpatient (REF) | payer MEDICARE, SELFPAY ==
--- NOTE | ~2024-10-05 | US_ITS ---
EXAMINATION: US KIDNEY BILATERAL HISTORY: N13.2 - Hydronephrosis with renal and ureteral calculous obstruction TECHNIQUE: Real-time grayscale ultrasound imaging of the kidneys was performed and images were reviewed. COMPARISON: Comparison is made with the prior examination dated 06/01/2024. FINDINGS: Right kidney: The right kidney measures 14.0 x 6.9 x 6.0 cm. Renal parenchymal echotexture and thickness are normal. There is a 6 mm cyst in the interpolar region. There is a 3 mm nonobstructing calculus in the interpolar region. No hydronephrosis. Left Kidney: The left kidney measures 14.0 x 7.2 x 5.4 cm. Renal parenchymal echotexture and thickness are normal. There are no masses. There is no hydronephrosis or renal calculi. US/US renal BI IMPRESSION: 3 mm nonobstructing right renal calculus. Electronically signed by: Yonny Torres MD 10/06/2024 08:08 AM EDT
--- OUTSIDE RECORDS SUMMARY | 2024-10-05 18:51 | XMS_ITS | Clinical Summary ---
Author Organization [facility] Address [address] [place] [address] Care Team Providers Care Sheet Metal Insulator Name Role Phone Unavailable Primary Care Provider Unavailabl e Social History Tobacco Use Types Packs/Day Years Used Date Smoking Tobacco: Never Assessed Sex and Gender Information Value Date Recorded Sex Assigned at Not on file Gender Identity Not on file Sexual Orientation Not on file Plan of Treatment Health Maintenance Due Date Last Done Comments Hepatitis C Virus Screening 1955 DTaP/Tdap/Td Vaccines (1 - Tdap) 1972 Pneumococcal Vaccines 50+ (1 of 1 - PCV) 12/04/2003 Zoster (Shingles) Vaccine (1 of 2) 12/04/2003 COVID-19 Vaccine ( - 2023-2 5 season) 2024 RSV Vaccine 60 years and old er and Patients (1 - 1-dose 75+ series) 2028 Hepatitis B Vaccines Aged Out No long er eligible based on patient's age to complete this topic
== END 2024-10-05 15:57 | disposition home or self-care (01) ==
LOC: HO.US 15:56
PROVIDERS: PCP Nurse Practitioner Family; Visit Provider Urology
DX: N13.2 Hydronephrosis with renal and ureteral calculous obstruction (principal)
CPT/HCPCS: 76775

== ENCOUNTER → 2024-10-05 16:00 | Outpatient (BNV) | payer MEDICARE, SELFPAY | PROVIDERS: PCP Nurse Practitioner Family; Visit Provider Radiology Diagnostic Radiology | DX: N20.0 Calculus of kidney (principal) | CPT/HCPCS: 76775 ==